=== PATIENT | male | born 1975 | race Caucasian/White ===

== ENCOUNTER 2024-04-18 18:11 | Emergency (ER) | payer MEDICAID ==
[~2024-04-18] VITALS: Ht 177.8 cm; Wt 79.4 kg
[2024-04-18 18:14] VITALS: BP 133/87; RESP 16; TEMP 98.9; O2SAT 98
[2024-04-18 18:19] VITALS: PULSE 123; O2SAT 99
[2024-04-18] MEDS ORDERED: VANCOMYCIN 1G PREMIX 200 ML IV SCH (18:30)
[2024-04-18] MEDS ORDERED: SULF1TAB48 MT (18:59)
[2024-04-18] MEDS ORDERED: CEPH500T MT (18:59)
[2024-04-18] MEDS ORDERED: PIPERACILLIN/TAZO 3.375G/50ML 50 ML IV SCH (22:00)
== END 2024-04-18 19:13 | disposition left against medical advice (07) ==
LOC: ER 18:11
DX: M65.841 Other synovitis and tenosynovitis, right hand (principal); Z53.29 Procedure and treatment not carried out because of patient's decision for other reasons
CPT/HCPCS: 73130; 99283